=== PATIENT | female | born 1960 | race Caucasian/White ===

== ENCOUNTER 2016-10-09 00:26 | Observation (INO) | payer OTHER ==
[~2016-10-09] VITALS: Ht 154.9 cm; Wt 87.6 kg
[~2016-10-09 00:26] MED LIST: NAPROXEN500 MG PO; PERCOCET 5/31 TABLET PO; ZOFRAN ODT4 MG PO
[2016-10-09 00:53] LABS: HEMATOCRIT 37.3 % (36.0-46.0); MCH 30.1 PG (29.0-34.0); MCV 91.2 FL (83-99); MEAN PLAT.VOLUME 10.1 uM^3 (9.5-12.4); PLATELET COUNT 176 K/uL (156-360); RBC DIS.WIDTH-SD 42.7 % (39-53); RED BLOOD COUNT 4.09 M/uL (3.80-5.20); WHITE BLOOD COUNT 5.7 K/uL (4.1-10.2)
[2016-10-09 01:02] LABS: CHLORIDE 107 mEq/L (99-109); SODIUM 140 mEq/L (136-147)
[2016-10-09 01:04] LABS: GLUCOSE 116 mg/dL (70-99)
[2016-10-09 01:05] LABS: ANION GAP 9 MEQ/L (2-14)
[2016-10-09 01:08] LABS: GFR ESTIMATE (CALCULATED) > 59 mL/min/
[2016-10-09 01:09] LABS: UREA NITROGEN (BUN) 17 mg/dL (9-23)
[2016-10-09 01:14] LABS: TROP-I INTERPRETATION NEGATIVE; TROPONIN-I < 0.01 ng/mL (0.0-0.30)
[2016-10-09 04:14] LABS: D-DIMER ELISA 0.45 mg/L FEU (< 0.57)
[2016-10-09 04:15] LABS: TOTAL BILIRUBIN 0.5 mg/dL (0.0-1.0)
[2016-10-09 04:16] LABS: ALKALINE PHOSPHATASE 80 IU/L (3-129)
[2016-10-09 04:19] LABS: DIRECT BILIRUBIN 0.2 mg/dL (0.0-0.3)
[2016-10-09 04:20] LABS: LIPASE 33 U/L (1.0-51.0)
[2016-10-09 04:29] VITALS: BP 113/67
[2016-10-09 04:57] LABS: HDL CHOLESTEROL 31 MG/DL (Desirable>=50); LDL CHOLESTEROL 112 mg/dL (Desirable<100); NON-HDL CHOLESTEROL 169 mg/dL (Desirable<160); SAMPLE HEMOLYSIS CHECK 0; SAMPLE ICTERIC CHECK 0; SAMPLE LIPEMIA CHECK 0; TOTAL CHOLESTEROL 200 mg/dL (Desirable<200); TRIGLYCERIDES 285 MG/DL (Normal: <150)
[2016-10-09 07:24] VITALS: BP 109/67
[2016-10-09 07:27] LABS: TROP-I INTERPRETATION NEGATIVE; TROPONIN-I < 0.01 ng/mL (0.0-0.30)
[2016-10-09 11:23] VITALS: BP 99/58
[2016-10-09] MEDS ORDERED: ZYRTEC10 M2 PO (12:54)
[2016-10-09 13:19] LABS: TROP-I INTERPRETATION NEGATIVE; TROPONIN-I < 0.01 ng/mL (0.0-0.30)
[2016-10-09] MEDS ORDERED: ASPIR-LOW81 MG PO (14:37)
== END 2016-10-09 15:22 | disposition home or self-care (01) ==
LOC: EME → EDBD 00:26 → EDOF 03:28 → 5WEST 04:23
PROVIDERS: Hospitalist
DX: R07.9 Chest pain, unspecified (principal); R51 Headache; Z87.891 Personal history of nicotine dependence; G89.29 Other chronic pain; K21.9 Gastro-esophageal reflux disease without esophagitis; K44.9 Diaphragmatic hernia without obstruction or gangrene
CPT/HCPCS: 71020; 80048; 80061; 80076; 83690; 84484; 85027; 85379; 93005; 99281; 99285; G0378

== ENCOUNTER 2017-05-02 07:50 | Emergency (ER) | payer OTHER ==
[~2017-05-02] VITALS: Ht 157.5 cm; Wt 89.2 kg
[~2017-05-02 07:50] MED LIST changes: +ASPIR-LOW81 MG PO; +ZYRTEC10 M2 PO
[2017-05-02 08:59] LABS: HEMATOCRIT 40.7 % (36.0-46.0); MCH 30.1 PG (29.0-34.0); MCHC 33.2 G/DL (30.0-36.0); MCV 90.6 FL (83-99); MEAN PLAT.VOLUME 10.1 uM^3 (9.5-12.4); PLATELET COUNT 197 K/uL (156-360); RBC DIS.WIDTH-CV 12.9 % (11.8-14.6); RBC DIS.WIDTH-SD 42.5 % (39-53); RED BLOOD COUNT 4.49 M/uL (3.80-5.20); WHITE BLOOD COUNT 4.5 K/uL (4.1-10.2)
[2017-05-02 09:14] LABS: CHLORIDE 107 mEq/L (99-109); POTASSIUM 4.6 mEq/L (3.7-5.4); SODIUM 140 mEq/L (136-147)
[2017-05-02 09:16] LABS: GLUCOSE 139 mg/dL (70-99)
[2017-05-02 09:17] LABS: ANION GAP 9 MEQ/L (2-14)
[2017-05-02 09:18] LABS: TOTAL BILIRUBIN 0.4 mg/dL (0.0-1.0)
[2017-05-02 09:19] LABS: ALKALINE PHOSPHATASE 96 IU/L (3-129)
[2017-05-02 09:20] LABS: GFR ESTIMATE (CALCULATED) > 59 mL/min/
[2017-05-02 09:21] LABS: UREA NITROGEN (BUN) 10 mg/dL (9-23)
[2017-05-02 09:23] LABS: LIPASE 28 U/L (1.0-51.0)
[2017-05-02] MEDS ORDERED: PREDNISONE20 MG PO (12:09)
[2017-05-02] MEDS ORDERED: TESSALON PERLE100 MG PO (12:09)
[2017-05-02] MEDS ORDERED: VENTOLIN HFA18 GM IH (12:11)
[2017-05-02 12:44] VITALS: BP 127/67
== END 2017-05-02 12:49 | disposition home or self-care (01) ==
LOC: EME 07:50
DX: J06.9 Acute upper respiratory infection, unspecified (principal); H66.90 Otitis media, unspecified, unspecified ear; F17.210 Nicotine dependence, cigarettes, uncomplicated
CPT/HCPCS: 71020; 80053; 81003; 83690; 85027; 99281; 99284

== ENCOUNTER 2018-01-08 22:53 | Emergency (ER) | payer OTHER ==
[~2018-01-08] VITALS: Ht 154.9 cm; Wt 87.3 kg
[~2018-01-08 22:53] MED LIST changes: +PREDNISONE20 MG PO; +TESSALON PERLE100 MG PO; +VENTOLIN HFA18 GM IH
[2018-01-08 23:45] VITALS: BP 147/88
== END 2018-01-08 23:45 | disposition home or self-care (01) ==
LOC: EME 22:53
DX: S60.460A Insect bite (nonvenomous) of right index finger, initial encounter (principal); W57.XXXA Bitten or stung by nonvenomous insect and other nonvenomous arthropods, initial encounter; K21.9 Gastro-esophageal reflux disease without esophagitis; Z87.891 Personal history of nicotine dependence; Z90.710 Acquired absence of both cervix and uterus; Z91.040 Latex allergy status
CPT/HCPCS: 99281; 99283